=== PATIENT | male | born 1955 | race Caucasian/White ===

== ENCOUNTER 2019-07-14 23:43 | Inpatient (IN) | payer MEDICARE, BC ==
[~2019-07-14] VITALS: Ht 190.5 cm; Wt 81.0 kg
[~2019-07-14 23:43] MED LIST: CLARITIN 1010 MG/TAB PO; DECADRON 1MG TAB1 MG PO; NO HOME MEDICATIONS; PRAVACHOL 20MG20 MG PO; PRILOSEC 20MG20 MG PO
[2019-07-15] VITALS (657 sets, daily range): BP systolic 91–131; BP diastolic 64–94; PULSE 49–95; TEMP 97–98.9; O2SAT 65–100
[2019-07-15 00:11] LABS: BASO # 0.1 (0.0-0.2); BASO % 0.6 % (0.0-2.0); EOS # 0.1 (0.0-0.7); EOS % 0.8 % (0-4.0); GRAN # 7.5 (1.4-6.5); GRAN % 75.2 % (42.2-75.2); HEMATOCRIT 44.6 % (42.0-52.0); HEMOGLOBIN 14.6 g/dl (13.5-18.0); LYMPH # 1.7 (1.2-3.4); LYMPH % 16.9 % (20.0-51.0); MEAN CELL VOLUME 84 fl (80.0-100.0); MEAN CORPUSCULAR HEMOGLOBIN 27 pg (27.0-31.0); MEAN CORPUSCULAR HGB CONC 33 g/dl (33.0-37.0); MEAN PLATELET VOLUME 9.3 fl (7.4-10.4); MONO # 0.6 (0.1-0.6); MONO % 6.3 % (1.7-9.3); PLATELET COUNT 269 K/mm3 (130-400); RED BLOOD COUNT 5.33 M/mm3 (4.20-5.60); REDCELL DISTRIBUTION WIDTH-CV 13.9 % (11.5-14.5)
[2019-07-15 00:23] LABS: INR 0.9 (0.8-3.0); PROTHROMBIN TIME 10.9 SECONDS (9.7-12.8)
[2019-07-15 00:26] LABS: PARTIAL THROMBOPLASTIN TIME 30.1 SECONDS (26.0-37.0)
[2019-07-15 00:27] LABS: ALBUMIN 4.6 gm/dL (3.5-5.0); BILIRUBIN,TOTAL 1.3 mg/dL (0.0-1.0); CALCIUM 9.5 mg/dL (8.4-10.2); CREATININE, serum 1.17 (0.66-1.25); POTASSIUM 4.3 mmol/L (3.4-5.0); TOTAL PROTEIN 7.5 gm/dL (6.4-8.2)
[2019-07-15 00:39] LABS: TROPONIN-I 0.475 ng/mL (0.000-0.035)
[2019-07-15 07:42] LABS: CHOLESTEROL RISK RATIO 4.6
[2019-07-15 17:00] LABS: BASO % 0.5 % (0.0-2.0); EOS % 0.6 % (0-4.0); GRAN # 4.4 (1.4-6.5); GRAN % 69.4 % (42.2-75.2); HEMATOCRIT 37.5 % (42.0-52.0); HEMOGLOBIN 12.7 g/dl (13.5-18.0); LYMPH # 1.3 (1.2-3.4); LYMPH % 20.9 % (20.0-51.0); MEAN CELL VOLUME 81 fl (80.0-100.0); MEAN CORPUSCULAR HEMOGLOBIN 28 pg (27.0-31.0); MEAN CORPUSCULAR HGB CONC 34 g/dl (33.0-37.0); MONO # 0.5 (0.1-0.6); MONO % 8.4 % (1.7-9.3); PLATELET COUNT 212 K/mm3 (130-400); RED BLOOD COUNT 4.62 M/mm3 (4.20-5.60); REDCELL DISTRIBUTION WIDTH-CV 13.9 % (11.5-14.5)
[2019-07-15 17:27] LABS: CALCIUM 8.7 mg/dL (8.4-10.2); CREATININE, serum 0.84 (0.66-1.25); MAGNESIUM 1.8 mg/dL (1.6-2.3); POTASSIUM 3.8 mmol/L (3.4-5.0)
[2019-07-16] VITALS (464 sets, daily range): BP systolic 92–118; BP diastolic 65–76; PULSE 73–91; TEMP 98.2–101.6; O2SAT 61–100
[2019-07-16 05:48] LABS: BASO % 0.4 % (0.0-2.0); EOS % 0.1 % (0-4.0); GRAN # 8.3 (1.4-6.5); GRAN % 80.3 % (42.2-75.2); HEMATOCRIT 41.4 % (42.0-52.0); HEMOGLOBIN 14.1 g/dl (13.5-18.0); LYMPH # 1.1 (1.2-3.4); LYMPH % 10.2 % (20.0-51.0); MEAN CELL VOLUME 81 fl (80.0-100.0); MEAN CORPUSCULAR HEMOGLOBIN 28 pg (27.0-31.0); MEAN CORPUSCULAR HGB CONC 34 g/dl (33.0-37.0); MEAN PLATELET VOLUME 9.5 fl (7.4-10.4); MONO # 0.9 (0.1-0.6); MONO % 8.7 % (1.7-9.3); PLATELET COUNT 254 K/mm3 (130-400); RED BLOOD COUNT 5.13 M/mm3 (4.20-5.60); REDCELL DISTRIBUTION WIDTH-CV 13.6 % (11.5-14.5)
[2019-07-16 06:01] LABS: CREATININE, serum 0.87 (0.66-1.25); POTASSIUM 4.1 mmol/L (3.4-5.0)
[2019-07-16 17:40] LABS: AMORPHOUS CRYSTAL Present /uL; MUCOUS Present /lpf; PH 5 (5-8); SQUAMOUS EPITHELIAL None Seen /hpf; URINE APPEARANCE Hazy; URINE BACTERIA None Seen /hpf; URINE BILIRUBIN Negative (NEGATIVE); URINE BLOOD 2+ (NEGATIVE); URINE COLOR Yellow; URINE GLUCOSE Negative (NEGATIVE); URINE KETONE Negative (NEGATIVE); URINE LEUKOCYTE ESTERASE Negative (NEGATIVE); URINE NITRATE Negative (NEGATIVE); URINE PROTEIN(semi-quant) Negative (NEGATIVE); URINE UROBILINOGEN Negative (NEGATIVE)
[2019-07-16 22:27] LABS: COLLECTION METHOD CLEAN CATCH
[2019-07-17] VITALS (379 sets, daily range): BP systolic 82–134; BP diastolic 57–82; PULSE 74–82; TEMP 97.6–100.5; O2SAT 49–100
[2019-07-17 07:06] LABS: HEMATOCRIT 38.9 % (42.0-52.0); HEMOGLOBIN 13.1 g/dl (13.5-18.0); MEAN CELL VOLUME 81 fl (80.0-100.0); MEAN CORPUSCULAR HEMOGLOBIN 27 pg (27.0-31.0); MEAN CORPUSCULAR HGB CONC 34 g/dl (33.0-37.0); MEAN PLATELET VOLUME 9.3 fl (7.4-10.4); PLATELET COUNT 207 K/mm3 (130-400); REDCELL DISTRIBUTION WIDTH-CV 13.9 % (11.5-14.5)
[2019-07-17 07:16] LABS: CALCIUM 8.6 mg/dL (8.4-10.2); CREATININE, serum 1.19 (0.66-1.25); POTASSIUM 4.1 mmol/L (3.4-5.0)
[2019-07-17 08:00] LABS: BAND 5 % (0-10); LYMPHOCYTE 7 % (20.0-51.0); NEUTROPHILS 78 % (42.0-75.2); PLATELET ESTIMATE NORMAL (NORMAL)
[2019-07-18 04:44] VITALS: BP 100/58; PULSE 70; TEMP 97.7
[2019-07-18 06:34] LABS: BASO % 0.5 % (0.0-2.0); EOS # 0.1 (0.0-0.7); EOS % 1.7 % (0-4.0); GRAN # 6.5 (1.4-6.5); GRAN % 78.6 % (42.2-75.2); HEMOGLOBIN 11.4 g/dl (13.5-18.0); LYMPH # 0.8 (1.2-3.4); LYMPH % 10.2 % (20.0-51.0); MEAN CELL VOLUME 83 fl (80.0-100.0); MEAN CORPUSCULAR HEMOGLOBIN 27 pg (27.0-31.0); MEAN CORPUSCULAR HGB CONC 33 g/dl (33.0-37.0); MEAN PLATELET VOLUME 9.5 fl (7.4-10.4); MONO # 0.7 (0.1-0.6); MONO % 8.8 % (1.7-9.3); PLATELET COUNT 179 K/mm3 (130-400); RED BLOOD COUNT 4.22 M/mm3 (4.20-5.60); REDCELL DISTRIBUTION WIDTH-CV 14.1 % (11.5-14.5)
[2019-07-18 06:47] LABS: HEMATOCRIT 34.8 % (42.0-52.0)
[2019-07-18 07:03] LABS: CALCIUM 8.3 mg/dL (8.4-10.2); CREATININE, serum 1.07 (0.66-1.25); POTASSIUM 3.7 mmol/L (3.4-5.0)
[2019-07-18 07:34] VITALS: BP 90/55; PULSE 64; TEMP 98
[2019-07-18 11:34] VITALS: BP 101/56; PULSE 64; TEMP 97.7
[2019-07-18 15:55] VITALS: BP 137/80; PULSE 72; TEMP 97.8
[2019-07-18 20:31] VITALS: BP 110/60; PULSE 75; TEMP 98.4
[2019-07-18 23:06] VITALS: BP 131/78; PULSE 80; TEMP 98.6
[2019-07-19 03:45] VITALS: BP 131/84; PULSE 77; TEMP 97.6
[2019-07-19 07:30] VITALS: BP 126/72; PULSE 74; TEMP 97.7
[2019-07-19 08:32] LABS: BASO % 0.4 % (0.0-2.0); EOS # 0.1 (0.0-0.7); EOS % 1.2 % (0-4.0); GRAN # 7.7 (1.4-6.5); GRAN % 81.3 % (42.2-75.2); HEMOGLOBIN 12.3 g/dl (13.5-18.0); LYMPH # 0.7 (1.2-3.4); LYMPH % 7.7 % (20.0-51.0); MEAN CELL VOLUME 82 fl (80.0-100.0); MEAN CORPUSCULAR HEMOGLOBIN 28 pg (27.0-31.0); MEAN CORPUSCULAR HGB CONC 34 g/dl (33.0-37.0); MEAN PLATELET VOLUME 9.6 fl (7.4-10.4); MONO # 0.9 (0.1-0.6); MONO % 9.1 % (1.7-9.3); PLATELET COUNT 231 K/mm3 (130-400); RED BLOOD COUNT 4.42 M/mm3 (4.20-5.60); REDCELL DISTRIBUTION WIDTH-CV 13.9 % (11.5-14.5)
[2019-07-19 08:40] LABS: HEMATOCRIT 36.1 % (42.0-52.0)
[2019-07-19 08:45] LABS: CALCIUM 8.8 mg/dL (8.4-10.2); CREATININE, serum 0.91 (0.66-1.25); POTASSIUM 3.6 mmol/L (3.4-5.0)
[2019-07-19 11:42] VITALS: BP 97/60; PULSE 78; TEMP 98.5
[2019-07-19 16:57] VITALS: BP 88/50; PULSE 80; TEMP 98.6
[2019-07-19 20:15] VITALS: BP 112/64; PULSE 58; TEMP 98.6
[2019-07-20 00:15] VITALS: BP 108/67; PULSE 62; TEMP 98.6
[2019-07-20 06:09] LABS: HEMOGLOBIN 11.8 g/dl (13.5-18.0)
[2019-07-20 06:17] VITALS: BP 95/59; PULSE 66; TEMP 97.7
[2019-07-20 06:33] LABS: HEMATOCRIT 35.4 % (42.0-52.0)
[2019-07-20 07:05] VITALS: BP 102/67; PULSE 73; TEMP 99.2
[2019-07-20] MEDS ORDERED: LIPITOR 80MG80 MG PO (10:16)
[2019-07-20] MEDS ORDERED: BRILINTA90 MG PO (10:16)
[2019-07-20] MEDS ORDERED: TYLENOL 325MG325 MG PO (10:17)
[2019-07-20] MEDS ORDERED: ASPIRIN 81M81 MG/TA2 PO (10:17)
[2019-07-20 11:34] VITALS: BP 98/63; PULSE 66; TEMP 98.6
== END 2019-07-20 14:35 | DRG 246 ==
LOC: COL.ER 23:43 → ICU 07-15 01:22 → MEDICAL 07-17 17:51
PROVIDERS: Emergency Medicine; Hospitalist; Internal Medicine Cardiovascular Disease; Nurse Practitioner Family; Physician Assistant; Student in an Organized Health Care Education/Training Program; ADMIT Internal Medicine
PROC: 027034Z Dilation of Coronary Artery, One Artery with Drug-eluting Intraluminal Device, Percutaneous Approach (ICD-10-PCS; principal; 2019-07-15)
PROC: B211YZZ Fluoroscopy of Multiple Coronary Arteries using Other Contrast (ICD-10-PCS; 2019-07-15)
PROC: 4A023N7 Measurement of Cardiac Sampling and Pressure, Left Heart, Percutaneous Approach (ICD-10-PCS; 2019-07-15)
DX: I21.4 Non-ST elevation (NSTEMI) myocardial infarction (principal); I63.89 Other cerebral infarction; G93.40 Encephalopathy, unspecified; G81.94 Hemiplegia, unspecified affecting left nondominant side; I10 Essential (primary) hypertension; G47.33 Obstructive sleep apnea (adult) (pediatric); E78.5 Hyperlipidemia, unspecified; I95.9 Hypotension, unspecified; R73.9 Hyperglycemia, unspecified; I25.110 Atherosclerotic heart disease of native coronary artery with unstable angina pectoris; R31.9 Hematuria, unspecified; R50.9 Fever, unspecified; R26.89 Other abnormalities of gait and mobility; Z85.841 Personal history of malignant neoplasm of brain; Z92.21 Personal history of antineoplastic chemotherapy
CPT/HCPCS: 99223-AI; 99231-AI; 99233-AI; 99239; A9585; C1769; C1874; C1887; C9600; J0583; J1644; J2250; J2270; J2543; J3010; J3370; J7030; J7050